=== PATIENT | female | born 1955 | race Caucasian/White ===

== ENCOUNTER 2020-04-05 22:51 | Observation (INO) ==
[2020-04-06] MEDS ORDERED: Isovue-370 500 ML BOTTLE IVP ONE (01:57)
[2020-04-06 02:29] LABS: Hematocrit 33.5 % (35.3-44.9); Hemoglobin 10.8 g/dL (11.5-15.4); Mean Corpuscular HGB Conc 32.2 g/dL (31.6-35.5); Mean Corpuscular Hemoglobin 31.9 pg (28.0-33.3); Mean Corpuscular Volume 98.8 fL (83.0-100.0); Mean Platelet Volume 11.8 fL (9.4-12.4); Platelet Count 210 K/mcL (140-400); Red Blood Count 3.39 M/mcL (3.82-4.97); Red Cell Distribution Width 13.3 % (11.5-14.5); White Blood Count 11.9 K/mcL (4.3-11.1)
[2020-04-06 02:31] LABS: INR 0.9; Prothrombin Time 10.2 Seconds (9.4-12.1)
[2020-04-06 02:34] LABS: Activated Partial Thrombo Time 32.7 Seconds (26.0-36.0)
[2020-04-06 02:47] LABS: Calcium 9.4 mg/dL (8.6-10.3); Potassium 4.2 mEq/L (3.5-5.1)
[2020-04-06 02:48] LABS: Troponin I 0.03 ng/mL (< 0.04)
[2020-04-06] MEDS ORDERED: 0.9 % Sodium Chloride 1,000 ML IVC ONE (03:15)
[2020-04-06] MEDS ORDERED: Aspirin 81 MG TAB.CHEW PO ONE (03:51)
[2020-04-06 04:10] LABS: Albumin 3.8 g/dL (3.5-5.7); Albumin/Globulin Ratio 1.9 (1.1-2.2); Bilirubin,Indirect 0.2 mg/dL (0.0-1.0); Bilirubin,Total 0.2 mg/dL (0.3-1.0); Total Protein 5.8 g/dL (6.4-8.9)
[2020-04-06] MEDS ORDERED: Ondansetron 4 MG/2 ML VIAL IVP PRN (08:01)
[2020-04-06] MEDS ORDERED: MOM Conc 10 ML UD.LIQ PO PRN (08:01)
[2020-04-06] MEDS ORDERED: Mag Hydrox/Al Hydrox/Simeth 30 ML UDC PO PRN (08:01)
[2020-04-06] MEDS ORDERED: Naloxone 0.4 MG/ML INJ IVP PRN (08:01)
[2020-04-06] MEDS ORDERED: Ipratropium/Albuterol Neb 3 ML IH PRN (08:03)
[2020-04-06] MEDS ORDERED: *HR* Dextrose 50 % in Water (Vial) 50 ML VIAL IVP PRN (08:04)
[2020-04-06] MEDS ORDERED: Dextrose Gel 15 GM/37.5 ML TUBE PO PRN ×2 (08:04)
[2020-04-06] MEDS ORDERED: D5% in Water 1,000 ML IVC PRN (08:04)
[2020-04-06] MEDS ORDERED: Perflutren Lipid Microsphere 1.3 ML in 0.9 % Sodium Chloride 8.7 ML IVP PRN (08:06)
[2020-04-06] MEDS ORDERED: BuPROPion SR (12 HR) 150 MG TABLET PO SCH (09:00)
[2020-04-06] MEDS: Metoprolol XL (24 HR) Succ 50 MG TAB.ER.24H PO SCH (09:23)
[2020-04-06] MEDS: amLODIPine 5 MG TABLET PO SCH (09:23)
[2020-04-06] MEDS: Acetaminophen 325 MG TABLET PO PRN ×3 (09:23→22:03)
[2020-04-06] MEDS: 0.9 % Sodium Chloride 1,000 ML IVC SCH (09:23)
[2020-04-06] MEDS: Insulin LISPRO 300 UNITS/3 ML VIAL SQ SCH ×2 (13:35→17:01)
[2020-04-06] MEDS: *HR* Heparin 5,000 UNIT/ML VIAL SQ SCH ×2 (15:53→22:03)
[2020-04-06] MEDS: Nicotine 21 MG PATCH.TD24 TD SCH (15:53)
[2020-04-06] MEDS ORDERED: Insulin LISPRO 300 UNITS/3 ML VIAL SQ SCH (21:00)
[2020-04-06 23:07] LABS: Bilirubin,Urine Negative (Negative); Blood,Urine Negative (Negative); Clarity,Urine Clear (Clear); Color,Urine Light-Yellow (Yellow); Glucose,Urine (UA) Normal (Normal); Ketones,Urine Negative (Negative); Leukocyte Esterase,Urine Negative (Negative); Nitrite,Urine Negative (Negative); PH,Urine 6.5 pH Units (5.0-8.0); Protein,Urine Negative (Neg-Trace); Specific Gravity,Urine 1.013 (1.010-1.025); Urobilinogen,Urine Normal (Normal)
[2020-04-07] MEDS: 0.9 % Sodium Chloride 1,000 ML IVC SCH (03:00)
[2020-04-07] MEDS: *HR* Heparin 5,000 UNIT/ML VIAL SQ SCH ×2 (05:19→15:11)
[2020-04-07] MEDS: Acetaminophen 325 MG TABLET PO PRN (05:22)
[2020-04-07 06:15] LABS: Hematocrit 32.7 % (35.3-44.9); Hemoglobin 10.5 g/dL (11.5-15.4); Mean Corpuscular HGB Conc 32.1 g/dL (31.6-35.5); Mean Corpuscular Volume 99.7 fL (83.0-100.0); Mean Platelet Volume 11.6 fL (9.4-12.4); Platelet Count 186 K/mcL (140-400); Red Blood Count 3.28 M/mcL (3.82-4.97); Red Cell Distribution Width 13.2 % (11.5-14.5)
[2020-04-07 06:36] LABS: Calcium 8.6 mg/dL (8.6-10.3); Chol/HDL Ratio 2.5 (0-4.9); Magnesium 1.7 mg/dL (1.6-2.6); Potassium 4.4 mEq/L (3.5-5.1)
[2020-04-07] MEDS: Nicotine 21 MG PATCH.TD24 TD SCH (08:01)
[2020-04-07] MEDS: amLODIPine 5 MG TABLET PO SCH (08:01)
[2020-04-07] MEDS: Metoprolol XL (24 HR) Succ 50 MG TAB.ER.24H PO SCH (08:01)
[2020-04-07] MEDS: Insulin LISPRO 300 UNITS/3 ML VIAL SQ SCH ×2 (08:02→14:16)
[2020-04-07] MEDS ORDERED: Aspirin Enteric Coated 81 MG Tablet PO SCH (09:00)
[2020-04-07] MEDS ORDERED: BuPROPion XL (24 HR) 150 MG TABLET PO SCH (09:00)
[2020-04-07 15:51] VITALS: BP 151/70
== END 2020-04-07 17:12 | disposition home or self-care (01) ==
LOC: 3ANU 22:51 → EMEROOARM 22:51 → SUATTDRO 04-06 04:05 → 3ANU 04-06 04:28
PROVIDERS: ADMIT Internal Medicine; ATTEND Internal Medicine

== ENCOUNTER 2020-12-08 00:06 | Inpatient (IN) ==
[2020-12-08] MEDS ORDERED: Naloxone 0.4 MG/ML INJ IVP PRN (01:54)
[2020-12-08] MEDS ORDERED: D5% in Water 1,000 ML IVC PRN (02:02)
[2020-12-08] MEDS ORDERED: *HR* Dextrose 50 % in Water (Vial) 50 ML VIAL IVP PRN (02:02)
[2020-12-08] MEDS ORDERED: Dextrose Gel 15 GM/37.5 ML TUBE PO PRN ×2 (02:02)
[2020-12-08] MEDS ORDERED: Perflutren Lipid Microsphere 1.3 ML in 0.9 % Sodium Chloride 8.7 ML IVP PRN (02:44)
[2020-12-08] MEDS ORDERED: Nicotine 2 MG GUM BC PRN (02:44)
[2020-12-08] MEDS ORDERED: Benzonatate 100 MG CAPSULE PO PRN (02:45)
[2020-12-08] MEDS ORDERED: Furosemide 20 MG/2 ML VIAL IVP ONE (03:18)
[2020-12-08 03:26] LABS: VBG HCO3 26 mEq/L (21-27); VBG PCO2 46 mmHg (41-51); VBG PH 7.36 pH Units (7.32-7.42); VBG PO2 32 mmHg (25-50)
[2020-12-08 03:28] LABS: Basophils % 0.4 %; Eosinophils # 0.1 K/mcL (0.0-0.6); Eosinophils % 1.1 %; Hematocrit 40.4 % (35.3-44.9); Hemoglobin 12.9 g/dL (11.5-15.4); Immature Granulocytes % 0.3 % (0-4); Lymphocytes # 1.7 K/mcL (0.6-4.6); Lymphocytes % 23.5 %; Mean Corpuscular HGB Conc 31.9 g/dL (31.6-35.5); Mean Corpuscular Hemoglobin 29.5 pg (28.0-33.3); Mean Corpuscular Volume 92.4 fL (83.0-100.0); Monocytes # 0.6 K/mcL (0.0-1.3); Monocytes % 8.7 %; Neutrophils # 4.8 K/mcL (1.6-8.9); Platelet Count 216 K/mcL (140-400); Red Blood Count 4.37 M/mcL (3.82-4.97); Red Cell Distribution Width 13.9 % (11.5-14.5); White Blood Count 7.3 K/mcL (4.3-11.1)
[2020-12-08 03:37] LABS: INR 1.1; Prothrombin Time 12.8 Seconds (9.4-12.1)
[2020-12-08 03:38] LABS: Activated Partial Thrombo Time 28.6 Seconds (26.0-36.0)
[2020-12-08 03:49] LABS: Alanine Aminotransferase 13 Units/L (7-52); Albumin 3.5 g/dL (3.5-5.7); Albumin/Globulin Ratio 1.1 (1.1-2.2); Alkaline Phosphatase 109 Units/L (34-104); Aspartate Amino Transferase 13 Units/L (13-39); BUN/Creatinine Ratio 16 (6-26); Bilirubin,Total 0.5 mg/dL (0.3-1.0); Blood Urea Nitrogen 17 mg/dL (8-23); C-Reactive Protein 103 mg/L (Less than 10); Calcium 9.3 mg/dL (8.6-10.3); Carbon Dioxide 26 mEq/L (23-29); Chloride 103 mEq/L (98-107); Globulin 3.1 g/dL (2.4-3.5); Glucose 174 mg/dL (70-105); Magnesium 1.6 mg/dL (1.6-2.6); Osmolality,Calculated 288 (280-300); Phosphorous 2.8 mg/dL (2.7-4.5); Potassium 3.5 mEq/L (3.5-5.1); Sodium 136 mEq/L (136-145); Total Protein 6.6 g/dL (6.4-8.9); Transferrin 175 mg/dL (203-362); Troponin I 0.04 ng/mL (< 0.04); eGFR For African Americans > 60 (> 60); eGFR For Non-African Americans 51 (> 60)
[2020-12-08] MEDS: Ipratropium 1 PUFF INHALER IH SCH ×5 (04:01→20:06)
[2020-12-08 04:04] LABS: Ferritin 96 ng/mL (10-120)
[2020-12-08 04:25] LABS: Thyroid Stimulating Hormone 0.983 mcIU/mL (0.340-5.600)
[2020-12-08 04:32] LABS: Estimated Average Glucose 100 mg/dl; Hemoglobin A1C 5.1 %
[2020-12-08] MEDS: *HR* Heparin 5,000 UNIT/ML VIAL SQ SCH ×3 (05:20→20:48)
[2020-12-08] MEDS: Insulin LISPRO 300 UNITS/3 ML VIAL SUBQ SCH ×4 (08:15→20:46)
[2020-12-08] MEDS: Dexamethasone 4 MG/ML VIAL IVP SCH (08:47)
[2020-12-08] MEDS: Nicotine 21 MG PATCH.TD24 TD SCH (08:48)
[2020-12-08] MEDS: Acetaminophen 325 MG TABLET PO PRN ×2 (14:49→20:49)
[2020-12-08] MEDS ORDERED: Metoprolol XL (24 HR) Succ 50 MG TAB.ER.24H PO SCH (18:00)
[2020-12-08] MEDS: Melatonin 3 MG TABLET PO PRN (20:48)
[2020-12-09] MEDS: Ipratropium 1 PUFF INHALER IH SCH ×6 (00:01→19:38)
[2020-12-09] MEDS: Acetaminophen 325 MG TABLET PO PRN ×2 (03:50→19:33)
[2020-12-09] MEDS: *HR* Metoprolol 5 MG/5 ML VIAL IVP PRN (03:51)
[2020-12-09] MEDS: *HR* Heparin 5,000 UNIT/ML VIAL SQ SCH ×3 (03:57→19:33)
[2020-12-09] MEDS: Aspirin Enteric Coated 81 MG Tablet PO SCH (08:20)
[2020-12-09] MEDS: (Vilazodone Hcl [Viibryd] 40 MG Tablet) PO SCH (08:21)
[2020-12-09] MEDS: Dexamethasone 4 MG/ML VIAL IVP SCH (08:21)
[2020-12-09] MEDS: Nicotine 21 MG PATCH.TD24 TD SCH (08:21)
[2020-12-09] MEDS: Insulin LISPRO 300 UNITS/3 ML VIAL SUBQ SCH ×4 (08:22→19:41)
[2020-12-09] MEDS ORDERED: amLODIPine 5 MG TABLET PO SCH ×2 (09:00)
[2020-12-09 10:14] LABS: Basophils % 0.1 %; Eosinophils % 0.1 %; Hematocrit 35.4 % (35.3-44.9); Hemoglobin 11.5 g/dL (11.5-15.4); Immature Granulocytes % 0.4 % (0-4); Lymphocytes # 0.9 K/mcL (0.6-4.6); Lymphocytes % 12.4 %; Mean Corpuscular HGB Conc 32.5 g/dL (31.6-35.5); Mean Corpuscular Hemoglobin 29.6 pg (28.0-33.3); Mean Platelet Volume 11.9 fL (9.4-12.4); Monocytes # 0.3 K/mcL (0.0-1.3); Monocytes % 4.1 %; Neutrophils # 5.7 K/mcL (1.6-8.9); Platelet Count 227 K/mcL (140-400); Red Blood Count 3.89 M/mcL (3.82-4.97); Red Cell Distribution Width 13.5 % (11.5-14.5); Segmented Neutrophils % 82.9 %; White Blood Count 6.9 K/mcL (4.3-11.1)
[2020-12-09 10:48] LABS: Burr Cells 1+ (Not Present); Large Platelets Present (Not Present); Reactive Lymphocytes Present (Not Present)
[2020-12-09] MEDS: lisinopriL 20 MG TABLET PO SCH (12:11)
[2020-12-09 12:51] LABS: Calcium 9.4 mg/dL (8.6-10.3); Potassium 3.6 mEq/L (3.5-5.1)
[2020-12-09] MEDS ORDERED: Furosemide 20 MG/2 ML VIAL IVP ONE (13:18)
[2020-12-09] MEDS ORDERED: Metoprolol XL (24 HR) Succ 50 MG TAB.ER.24H PO SCH (18:00)
[2020-12-10] MEDS: Ipratropium 1 PUFF INHALER IH SCH ×6 (00:26→19:56)
[2020-12-10] MEDS: Ondansetron 4 MG/2 ML VIAL IVP PRN ×2 (02:15→23:36)
[2020-12-10] MEDS: *HR* Heparin 5,000 UNIT/ML VIAL SQ SCH ×3 (04:26→20:51)
[2020-12-10] MEDS: *HR* Metoprolol 5 MG/5 ML VIAL IVP PRN (05:07)
[2020-12-10] MEDS: Acetaminophen 325 MG TABLET PO PRN ×3 (05:07→23:31)
[2020-12-10 05:39] LABS: Basophils % 0.2 %; Hematocrit 37.5 % (35.3-44.9); Hemoglobin 12.2 g/dL (11.5-15.4); Immature Granulocytes % 0.3 % (0-4); Lymphocytes # 1.5 K/mcL (0.6-4.6); Lymphocytes % 13.7 %; Mean Corpuscular HGB Conc 32.5 g/dL (31.6-35.5); Mean Corpuscular Hemoglobin 29.5 pg (28.0-33.3); Mean Corpuscular Volume 90.8 fL (83.0-100.0); Mean Platelet Volume 11.9 fL (9.4-12.4); Monocytes # 0.8 K/mcL (0.0-1.3); Monocytes % 7.5 %; Neutrophils # 8.7 K/mcL (1.6-8.9); Platelet Count 266 K/mcL (140-400); Red Blood Count 4.13 M/mcL (3.82-4.97); Red Cell Distribution Width 13.3 % (11.5-14.5); Segmented Neutrophils % 78.3 %
[2020-12-10 05:43] LABS: White Blood Count 11.1 K/mcL (4.3-11.1)
[2020-12-10 05:59] LABS: Albumin 3.4 g/dL (3.5-5.7); Albumin/Globulin Ratio 1.2 (1.1-2.2); Bilirubin,Total 0.4 mg/dL (0.3-1.0); Calcium 9.4 mg/dL (8.6-10.3); Globulin 2.9 g/dL (2.4-3.5); Potassium 3.4 mEq/L (3.5-5.1); Total Protein 6.3 g/dL (6.4-8.9)
[2020-12-10] MEDS: Spironolactone 25 MG TABLET PO SCH (08:47)
[2020-12-10] MEDS: Nicotine 21 MG PATCH.TD24 TD SCH (08:47)
[2020-12-10] MEDS: Aspirin Enteric Coated 81 MG Tablet PO SCH (08:48)
[2020-12-10] MEDS: Dexamethasone 4 MG/ML VIAL IVP SCH (08:48)
[2020-12-10] MEDS: (Vilazodone Hcl [Viibryd] 40 MG Tablet) PO SCH (08:48)
[2020-12-10] MEDS: lisinopriL 20 MG TABLET PO SCH (08:48)
[2020-12-10] MEDS: Insulin LISPRO 300 UNITS/3 ML VIAL SUBQ SCH ×4 (08:49→20:43)
[2020-12-10] MEDS ORDERED: hydrALAZINE 25 MG TABLET PO SCH (09:00)
[2020-12-10] MEDS: carvediloL 25 MG TABLET PO SCH (16:49)
[2020-12-11] MEDS: Ipratropium 1 PUFF INHALER IH SCH ×6 (00:11→19:53)
[2020-12-11] MEDS: *HR* Heparin 5,000 UNIT/ML VIAL SQ SCH ×3 (05:28→20:55)
[2020-12-11 06:32] LABS: Basophils % 0.1 %; Hematocrit 37.5 % (35.3-44.9); Immature Granulocytes % 0.4 % (0-4); Lymphocytes # 1.8 K/mcL (0.6-4.6); Lymphocytes % 11.8 %; Mean Corpuscular Hemoglobin 29.6 pg (28.0-33.3); Mean Corpuscular Volume 92.4 fL (83.0-100.0); Monocytes # 1.1 K/mcL (0.0-1.3); Monocytes % 7.4 %; Platelet Count 273 K/mcL (140-400); Red Blood Count 4.06 M/mcL (3.82-4.97); Red Cell Distribution Width 13.3 % (11.5-14.5); Segmented Neutrophils % 80.3 %; White Blood Count 14.9 K/mcL (4.3-11.1)
[2020-12-11 06:53] LABS: Calcium 9.6 mg/dL (8.6-10.3); Potassium 4.4 mEq/L (3.5-5.1)
[2020-12-11] MEDS: Insulin LISPRO 300 UNITS/3 ML VIAL SUBQ SCH ×4 (08:47→20:56)
[2020-12-11] MEDS ORDERED: lisinopriL 10 MG TABLET PO SCH (09:00)
[2020-12-11] MEDS: (Vilazodone Hcl [Viibryd] 40 MG Tablet) PO SCH (09:14)
[2020-12-11] MEDS: Spironolactone 25 MG TABLET PO SCH (09:14)
[2020-12-11] MEDS: Nicotine 21 MG PATCH.TD24 TD SCH (09:14)
[2020-12-11] MEDS: Aspirin Enteric Coated 81 MG Tablet PO SCH (09:14)
[2020-12-11] MEDS: carvediloL 25 MG TABLET PO SCH ×2 (09:14→16:50)
[2020-12-11] MEDS: Dexamethasone 4 MG/ML VIAL IVP SCH (09:15)
[2020-12-11] MEDS ORDERED: Nitroglycerin 0.4 MG TAB.SUBL SL PRN (09:53)
[2020-12-11] MEDS ORDERED: Perflutren Lipid Microsphere 1.3 ML in 0.9 % Sodium Chloride 8.7 ML IVP PRN (09:54)
[2020-12-11] MEDS: Melatonin 3 MG TABLET PO PRN (20:55)
[2020-12-12] MEDS: Ipratropium 1 PUFF INHALER IH SCH ×4 (00:01→11:47)
[2020-12-12] MEDS: *HR* Heparin 5,000 UNIT/ML VIAL SQ SCH (05:54)
[2020-12-12 06:11] LABS: Basophils % 0.1 %; Hemoglobin 12.1 g/dL (11.5-15.4); Immature Granulocytes % 0.4 % (0-4); Lymphocytes # 1.8 K/mcL (0.6-4.6); Lymphocytes % 11.2 %; Mean Corpuscular HGB Conc 32.7 g/dL (31.6-35.5); Mean Corpuscular Hemoglobin 29.7 pg (28.0-33.3); Mean Corpuscular Volume 90.7 fL (83.0-100.0); Mean Platelet Volume 12.3 fL (9.4-12.4); Monocytes # 1.1 K/mcL (0.0-1.3); Monocytes % 6.9 %; Neutrophils # 12.8 K/mcL (1.6-8.9); Platelet Count 276 K/mcL (140-400); Red Blood Count 4.08 M/mcL (3.82-4.97); Segmented Neutrophils % 81.4 %; White Blood Count 15.7 K/mcL (4.3-11.1)
[2020-12-12 06:45] LABS: BUN/Creatinine Ratio 28 (6-26); Blood Urea Nitrogen 31 mg/dL (8-23); Calcium 9.7 mg/dL (8.6-10.3); Carbon Dioxide 26 mEq/L (23-29); Chloride 101 mEq/L (98-107); Glucose 208 mg/dL (70-105); Osmolality,Calculated 291 (280-300); Potassium 4.2 mEq/L (3.5-5.1); Sodium 134 mEq/L (136-145); eGFR For African Americans > 60 (> 60); eGFR For Non-African Americans 50 (> 60)
[2020-12-12] MEDS ORDERED: hydrALAZINE 25 MG TABLET PO SCH (08:00)
[2020-12-12 08:26] LABS: C-Reactive Protein 28 mg/L (Less than 10)
[2020-12-12] MEDS: Dexamethasone 4 MG/ML VIAL IVP SCH (08:51)
[2020-12-12] MEDS: Aspirin Enteric Coated 81 MG Tablet PO SCH (08:52)
[2020-12-12] MEDS: Nicotine 21 MG PATCH.TD24 TD SCH (08:52)
[2020-12-12] MEDS: carvediloL 25 MG TABLET PO SCH (08:52)
[2020-12-12] MEDS: Spironolactone 25 MG TABLET PO SCH (08:52)
[2020-12-12] MEDS ORDERED: lisinopriL 20 MG TABLET PO SCH (09:00)
[2020-12-12] MEDS: Insulin LISPRO 300 UNITS/3 ML VIAL SUBQ SCH (09:01)
[2020-12-12] MEDS: (Vilazodone Hcl [Viibryd] 40 MG Tablet) PO SCH (09:02)
[2020-12-12 10:55] VITALS: BP 137/69
== END 2020-12-12 15:35 | disposition home or self-care (01) | DRG 177 ==
LOC: 3BNU → SUATTDRO 01:44
PROVIDERS: ADMIT Internal Medicine; ATTEND Internal Medicine

== ENCOUNTER 2021-09-06 14:40 | Inpatient (IN) ==
[2021-09-06] MEDS ORDERED: Ondansetron 4 MG/2 ML VIAL IVP PRN (17:30)
[2021-09-06] MEDS ORDERED: Naloxone 0.4 MG/ML INJ IVP PRN (17:30)
[2021-09-06] MEDS ORDERED: Nitroglycerin 0.4 MG TAB.SUBL SL PRN (17:40)
[2021-09-06] MEDS ORDERED: *HR* OxyCODONE Immed Rel 5 MG TABLET PO PRN (18:11)
[2021-09-06] MEDS ORDERED: Acetaminophen 325 MG TABLET PO PRN (18:11)
[2021-09-06] MEDS: Furosemide 20 MG/2 ML VIAL IVP SCH ×2 (19:34→21:41)
[2021-09-06] MEDS ORDERED: Furosemide 40 MG/4 ML VIAL IVP SCH (21:00)
[2021-09-06] MEDS: *HR* HYDROcodone/Acet 5/325 mg TABLET PO PRN (21:40)
[2021-09-07 02:27] LABS: Basophils # 0.1 K/mcL (0.0-0.2); Basophils % 0.6 %; Eosinophils # 0.1 K/mcL (0.0-0.6); Eosinophils % 1.6 %; Hematocrit 38.6 % (35.3-44.9); Hemoglobin 12.6 g/dL (11.5-15.4); Immature Granulocytes % 0.2 % (0-4); Lymphocytes % 33.4 %; Mean Corpuscular HGB Conc 32.6 g/dL (31.6-35.5); Mean Corpuscular Hemoglobin 32.7 pg (28.0-33.3); Mean Corpuscular Volume 100.3 fL (83.0-100.0); Mean Platelet Volume 12.7 fL (9.4-12.4); Monocytes # 0.7 K/mcL (0.0-1.3); Monocytes % 7.6 %; Neutrophils # 5.1 K/mcL (1.6-8.9); Platelet Count 200 K/mcL (140-400); Red Blood Count 3.85 M/mcL (3.82-4.97); Red Cell Distribution Width 13.8 % (11.5-14.5); Segmented Neutrophils % 56.6 %; White Blood Count 8.9 K/mcL (4.3-11.1)
[2021-09-07 02:41] LABS: Calcium 9.5 mg/dL (8.6-10.3); Magnesium 1.7 mg/dL (1.6-2.6); Phosphorous 2.8 mg/dL (2.7-4.5); Potassium 3.4 mEq/L (3.5-5.1)
[2021-09-07] MEDS: *HR* Heparin 5,000 UNIT/ML VIAL SQ SCH ×3 (05:00→20:37)
[2021-09-07] MEDS ORDERED: Perflutren Lipid Microsphere 1.3 ML in 0.9 % Sodium Chloride 8.7 ML IVP PRN (08:55)
[2021-09-07] MEDS: Furosemide 20 MG/2 ML VIAL IVP SCH (09:13)
[2021-09-07] MEDS: *HR* HYDROcodone/Acet 5/325 mg TABLET PO PRN ×2 (09:17→20:37)
[2021-09-08 01:09] LABS: Basophils % 0.4 %; Eosinophils # 0.1 K/mcL (0.0-0.6); Eosinophils % 1.5 %; Hematocrit 40.8 % (35.3-44.9); Immature Granulocytes % 0.1 % (0-4); Lymphocytes % 31.7 %; Mean Corpuscular HGB Conc 31.9 g/dL (31.6-35.5); Mean Corpuscular Hemoglobin 31.7 pg (28.0-33.3); Mean Corpuscular Volume 99.5 fL (83.0-100.0); Mean Platelet Volume 12.2 fL (9.4-12.4); Monocytes # 0.6 K/mcL (0.0-1.3); Monocytes % 5.8 %; Neutrophils # 5.8 K/mcL (1.6-8.9); Platelet Count 199 K/mcL (140-400); Red Cell Distribution Width 13.5 % (11.5-14.5); Segmented Neutrophils % 60.5 %; White Blood Count 9.5 K/mcL (4.3-11.1)
[2021-09-08 01:27] LABS: Calcium 9.5 mg/dL (8.6-10.3); Potassium 3.7 mEq/L (3.5-5.1)
[2021-09-08] MEDS: *HR* Heparin 5,000 UNIT/ML VIAL SQ SCH ×3 (05:31→21:17)
[2021-09-08] MEDS: Furosemide 20 MG/2 ML VIAL IVP SCH (09:34)
[2021-09-09 01:39] LABS: Basophils % 0.5 %; Eosinophils # 0.1 K/mcL (0.0-0.6); Hematocrit 39.1 % (35.3-44.9); Hemoglobin 12.7 g/dL (11.5-15.4); Immature Granulocytes % 0.3 % (0-4); Lymphocytes # 2.6 K/mcL (0.6-4.6); Lymphocytes % 32.6 %; Mean Corpuscular HGB Conc 32.5 g/dL (31.6-35.5); Mean Corpuscular Volume 98.5 fL (83.0-100.0); Mean Platelet Volume 12.3 fL (9.4-12.4); Monocytes # 0.6 K/mcL (0.0-1.3); Neutrophils # 4.6 K/mcL (1.6-8.9); Platelet Count 207 K/mcL (140-400); Red Blood Count 3.97 M/mcL (3.82-4.97); Red Cell Distribution Width 13.4 % (11.5-14.5); Segmented Neutrophils % 57.6 %; White Blood Count 7.9 K/mcL (4.3-11.1)
[2021-09-09 01:53] LABS: Calcium 9.8 mg/dL (8.6-10.3); Potassium 3.2 mEq/L (3.5-5.1)
[2021-09-09] MEDS: *HR* Heparin 5,000 UNIT/ML VIAL SQ SCH ×3 (05:08→21:15)
[2021-09-09] MEDS: Furosemide 20 MG/2 ML VIAL IVP SCH (08:52)
[2021-09-09] MEDS ORDERED: Perflutren Lipid Microsphere 1.3 ML in 0.9 % Sodium Chloride 8.7 ML IVP PRN (20:53)
[2021-09-10] MEDS: *HR* Heparin 5,000 UNIT/ML VIAL SQ SCH ×3 (05:53→21:08)
[2021-09-10] MEDS: Furosemide 20 MG/2 ML VIAL IVP SCH (08:44)
[2021-09-10 14:48] LABS: Basophils % 0.4 %; Eosinophils # 0.1 K/mcL (0.0-0.6); Eosinophils % 0.9 %; Hematocrit 40.3 % (35.3-44.9); Immature Granulocytes % 0.4 % (0-4); Lymphocytes # 2.1 K/mcL (0.6-4.6); Lymphocytes % 25.8 %; Mean Corpuscular HGB Conc 32.3 g/dL (31.6-35.5); Mean Corpuscular Hemoglobin 32.1 pg (28.0-33.3); Mean Corpuscular Volume 99.5 fL (83.0-100.0); Mean Platelet Volume 12.4 fL (9.4-12.4); Monocytes # 0.6 K/mcL (0.0-1.3); Monocytes % 7.7 %; Neutrophils # 5.3 K/mcL (1.6-8.9); Platelet Count 212 K/mcL (140-400); Red Blood Count 4.05 M/mcL (3.82-4.97); Red Cell Distribution Width 13.9 % (11.5-14.5); Segmented Neutrophils % 64.8 %; White Blood Count 8.1 K/mcL (4.3-11.1)
[2021-09-10 15:08] LABS: Calcium 9.8 mg/dL (8.6-10.3); Potassium 3.3 mEq/L (3.5-5.1)
[2021-09-10] MEDS: Pregabalin 75 MG CAPSULE PO SCH ×2 (15:28→21:07)
[2021-09-10] MEDS: lisinopriL 20 MG TABLET PO SCH (21:07)
[2021-09-11 02:13] LABS: Basophils % 0.5 %; Eosinophils # 0.1 K/mcL (0.0-0.6); Eosinophils % 1.2 %; Hematocrit 39.8 % (35.3-44.9); Hemoglobin 12.6 g/dL (11.5-15.4); Immature Granulocytes % 0.2 % (0-4); Lymphocytes # 2.9 K/mcL (0.6-4.6); Lymphocytes % 35.4 %; Mean Corpuscular HGB Conc 31.7 g/dL (31.6-35.5); Mean Corpuscular Hemoglobin 31.6 pg (28.0-33.3); Mean Corpuscular Volume 99.7 fL (83.0-100.0); Mean Platelet Volume 12.5 fL (9.4-12.4); Monocytes # 0.7 K/mcL (0.0-1.3); Monocytes % 9.2 %; Neutrophils # 4.3 K/mcL (1.6-8.9); Platelet Count 190 K/mcL (140-400); Red Blood Count 3.99 M/mcL (3.82-4.97); Red Cell Distribution Width 13.6 % (11.5-14.5); Segmented Neutrophils % 53.5 %; White Blood Count 8.1 K/mcL (4.3-11.1)
[2021-09-11 02:28] LABS: Calcium 9.9 mg/dL (8.6-10.3); Potassium 3.4 mEq/L (3.5-5.1)
[2021-09-11] MEDS: *HR* Heparin 5,000 UNIT/ML VIAL SQ SCH ×3 (06:05→21:35)
[2021-09-11] MEDS: Pregabalin 75 MG CAPSULE PO SCH ×3 (09:47→21:35)
[2021-09-11] MEDS: lisinopriL 20 MG TABLET PO SCH ×2 (09:47→21:35)
[2021-09-11] MEDS: Spironolactone 25 MG TABLET PO SCH (09:47)
[2021-09-11] MEDS: Metoprolol XL (24 HR) Succ 50 MG TAB.ER.24H PO SCH (09:47)
[2021-09-11] MEDS: Aspirin Enteric Coated 81 MG Tablet PO SCH (09:47)
[2021-09-11] MEDS: Furosemide 20 MG/2 ML VIAL IVP SCH (09:48)
[2021-09-11] MEDS ORDERED: Bumetanide 1 MG TABLET PO SCH (10:50)
[2021-09-11] MEDS: *HR* HYDROcodone/Acet 5/325 mg TABLET PO PRN (21:35)
[2021-09-12 02:47] LABS: Basophils # 0.1 K/mcL (0.0-0.2); Basophils % 0.6 %; Eosinophils # 0.1 K/mcL (0.0-0.6); Eosinophils % 1.2 %; Hemoglobin 12.8 g/dL (11.5-15.4); Immature Granulocytes % 0.2 % (0-4); Lymphocytes # 3.3 K/mcL (0.6-4.6); Lymphocytes % 36.6 %; Mean Corpuscular HGB Conc 31.2 g/dL (31.6-35.5); Mean Corpuscular Hemoglobin 31.8 pg (28.0-33.3); Mean Corpuscular Volume 101.7 fL (83.0-100.0); Monocytes # 0.7 K/mcL (0.0-1.3); Monocytes % 8.1 %; Neutrophils # 4.8 K/mcL (1.6-8.9); Platelet Count 195 K/mcL (140-400); Red Blood Count 4.03 M/mcL (3.82-4.97); Red Cell Distribution Width 13.7 % (11.5-14.5); Segmented Neutrophils % 53.3 %
[2021-09-12 03:05] LABS: Potassium 3.8 mEq/L (3.5-5.1)
[2021-09-12 03:38] VITALS: O2SAT 97
[2021-09-12] MEDS: *HR* Heparin 5,000 UNIT/ML VIAL SQ SCH (05:51)
[2021-09-12 06:49] VITALS: BP 135/66; PULSE 50; TEMP 97.8
[2021-09-12] MEDS: Aspirin Enteric Coated 81 MG Tablet PO SCH (08:03)
[2021-09-12] MEDS: Metoprolol XL (24 HR) Succ 50 MG TAB.ER.24H PO SCH (08:03)
[2021-09-12] MEDS: lisinopriL 20 MG TABLET PO SCH (08:03)
[2021-09-12] MEDS: Spironolactone 25 MG TABLET PO SCH (08:04)
[2021-09-12] MEDS: Pregabalin 75 MG CAPSULE PO SCH (08:04)
[2021-09-12] MEDS ORDERED: Bumetanide 1 MG TABLET PO SCH (09:00)
== END 2021-09-12 10:07 | disposition home or self-care (01) | DRG 291 ==
LOC: 3BNU → SUATTDRO 17:00
PROVIDERS: ADMIT Family Medicine; ATTEND Student in an Organized Health Care Education/Training Program

== ENCOUNTER 2021-12-08 13:55 | Inpatient (IN) ==
[2021-12-08] MEDS ORDERED: Isovue-370 500 ML BOTTLE IVP ONE (14:05)
[2021-12-08 14:16] LABS: Hematocrit 39.2 % (35.3-44.9); Hemoglobin 12.8 g/dL (11.5-15.4); Mean Corpuscular HGB Conc 32.7 g/dL (31.6-35.5); Mean Corpuscular Hemoglobin 31.8 pg (28.0-33.3); Mean Corpuscular Volume 97.5 fL (83.0-100.0); Mean Platelet Volume 11.5 fL (9.4-12.4); Platelet Count 236 K/mcL (140-400); Red Blood Count 4.02 M/mcL (3.82-4.97); Red Cell Distribution Width 13.5 % (11.5-14.5); White Blood Count 9.8 K/mcL (4.3-11.1)
[2021-12-08 14:21] LABS: Prothrombin Time 11.3 Seconds (9.4-12.1)
[2021-12-08 14:24] LABS: Activated Partial Thrombo Time 30.8 Seconds (26.0-36.0)
[2021-12-08 14:42] LABS: Troponin I 0.06 ng/mL (< 0.04)
[2021-12-08 15:19] LABS: Bilirubin,Urine Negative (Negative); Blood,Urine Negative (Negative); Clarity,Urine Clear (Clear); Color,Urine Light-Yellow (Yellow); Glucose,Urine (UA) Normal (Normal); Ketones,Urine Negative (Negative); Leukocyte Esterase,Urine Negative (Negative); Nitrite,Urine Negative (Negative); PH,Urine 6.5 pH Units (5.0-8.0); Protein,Urine Trace mg/dL (Neg-Trace); Specific Gravity,Urine > 1.030 (1.010-1.025); Urobilinogen,Urine Normal (Normal)
[2021-12-08 15:28] LABS: BUN/Creatinine Ratio 21 (6-26); Blood Urea Nitrogen 27 mg/dL (8-23); Calcium 9.4 mg/dL (8.6-10.3); Carbon Dioxide 26 mEq/L (23-29); Chloride 107 mEq/L (98-107); Creatine Kinase 53 Units/L (30-223); Ethanol < 10 mg/dL (Less than 10); Glucose 151 mg/dL (70-105); Osmolality,Calculated 298 (280-300); Potassium 4.1 mEq/L (3.5-5.1); Sodium 140 mEq/L (136-145); eGFR For African Americans 50 (> 60); eGFR For Non-African Americans 42 (> 60)
[2021-12-08 15:48] LABS: Influenza A PCR Negative (Negative); Influenza B PCR Negative (Negative); Resp. Syncytial Virus PCR Negative (Negative)
[2021-12-08 15:50] LABS: SARS-CoV-2 by PCR (In House) Negative (Negative)
[2021-12-08] MEDS ORDERED: Naloxone 0.4 MG/ML INJ IVP PRN (17:11)
[2021-12-08] MEDS ORDERED: Acetaminophen 325 MG TABLET PO PRN (17:11)
[2021-12-08] MEDS ORDERED: Ondansetron 4 MG/2 ML VIAL IVP PRN (17:11)
[2021-12-08] MEDS ORDERED: Melatonin 3 MG TABLET PO PRN (17:11)
[2021-12-08] MEDS ORDERED: Nicotine 2 MG GUM BC PRN (17:18)
[2021-12-08] MEDS ORDERED: *HR* LORazepam 2 MG/ML VIAL IVP ONE (18:18)
[2021-12-08] MEDS ORDERED: *HR* LORazepam 2 MG/ML VIAL IVP PRN (18:19)
[2021-12-08] MEDS: *HR* Heparin 5,000 UNIT/ML VIAL SQ SCH (18:23)
[2021-12-08] MEDS: Nicotine 14 MG PATCH.TD24 TD SCH (18:23)
[2021-12-08] MEDS: lisinopriL 20 MG TABLET PO SCH (20:13)
[2021-12-08] MEDS ORDERED: D5% in Water 1,000 ML IVC PRN (23:52)
[2021-12-08] MEDS ORDERED: Dextrose 4 GM Chewable Tablets PO PRN ×2 (23:52)
[2021-12-08] MEDS ORDERED: *HR* Dextrose 50 % in Water (Syg) 50 ML SYRINGE IVP PRN (23:52)
[2021-12-09] MEDS ORDERED: Acetaminophen IV 500 MG/50 ML BAG IVPB ONE (05:20)
[2021-12-09] MEDS: *HR* Heparin 5,000 UNIT/ML VIAL SQ SCH ×2 (05:34→17:09)
[2021-12-09] MEDS ORDERED: *HR* Enoxaparin 40 MG/0.4 ML SYRINGE SQ SCH (06:00)
[2021-12-09 06:38] LABS: INR 1.1; Prothrombin Time 11.9 Seconds (9.4-12.1)
[2021-12-09 06:45] LABS: Chol/HDL Ratio 2.5 (0-4.9)
[2021-12-09 06:50] LABS: Calcium 9.4 mg/dL (8.6-10.3); Phosphorous 2.7 mg/dL (2.7-4.5); Potassium 3.8 mEq/L (3.5-5.1); Troponin I 0.08 ng/mL (< 0.04)
[2021-12-09] MEDS ORDERED: Perflutren Lipid Microsphere 1.3 ML in 0.9 % Sodium Chloride 8.7 ML IVP PRN (07:54)
[2021-12-09] MEDS: lisinopriL 20 MG TABLET PO SCH ×2 (08:43→20:46)
[2021-12-09] MEDS: Bumetanide 1 MG TABLET PO SCH (08:43)
[2021-12-09] MEDS: Metoprolol XL (24 HR) Succ 50 MG TAB.ER.24H PO SCH (08:43)
[2021-12-09] MEDS: Nicotine 14 MG PATCH.TD24 TD SCH (08:57)
[2021-12-09] MEDS ORDERED: Aspirin Enteric Coated 81 MG Tablet PO SCH (09:00)
[2021-12-09 10:47] LABS: Estimated Average Glucose 91 mg/dl; Hemoglobin A1C 4.8 %
[2021-12-09] MEDS: Ketorolac 30 MG/ML VIAL IVP PRN ×2 (11:24→22:00)
[2021-12-09] MEDS: Aspirin 81 MG TAB.CHEW PO SCH (13:16)
[2021-12-09] MEDS ORDERED: *HR* LORazepam 2 MG/ML VIAL IVP ONE (22:14)
[2021-12-10] MEDS: Ketorolac 30 MG/ML VIAL IVP PRN ×2 (04:21→12:43)
[2021-12-10] MEDS ORDERED: *HR* LORazepam 2 MG/ML VIAL IVP ONE (05:13)
[2021-12-10] MEDS: *HR* Heparin 5,000 UNIT/ML VIAL SQ SCH ×2 (05:18→17:57)
[2021-12-10] MEDS: Aspirin 81 MG TAB.CHEW PO SCH (07:43)
[2021-12-10] MEDS: Bumetanide 1 MG TABLET PO SCH (07:43)
[2021-12-10] MEDS: Metoprolol XL (24 HR) Succ 50 MG TAB.ER.24H PO SCH (07:43)
[2021-12-10] MEDS: lisinopriL 20 MG TABLET PO SCH ×2 (07:43→20:07)
[2021-12-10] MEDS: Nicotine 14 MG PATCH.TD24 TD SCH (07:44)
[2021-12-10] MEDS: Pregabalin 75 MG CAPSULE PO SCH ×3 (07:54→20:07)
[2021-12-10] MEDS: hydrALAZINE 25 MG TABLET PO SCH ×3 (07:54→20:07)
[2021-12-10] MEDS ORDERED: hydrOXYzine pamoate 25 MG CAPSULE PO PRN (13:09)
[2021-12-11] MEDS: *HR* Heparin 5,000 UNIT/ML VIAL SQ SCH ×2 (05:26→17:00)
[2021-12-11] MEDS: Ketorolac 30 MG/ML VIAL IVP PRN ×2 (05:26→11:53)
[2021-12-11] MEDS: lisinopriL 20 MG TABLET PO SCH (08:06)
[2021-12-11] MEDS: Aspirin 81 MG TAB.CHEW PO SCH (08:06)
[2021-12-11] MEDS: Bumetanide 1 MG TABLET PO SCH (08:06)
[2021-12-11] MEDS: Pregabalin 75 MG CAPSULE PO SCH ×2 (08:06→15:13)
[2021-12-11] MEDS: Metoprolol XL (24 HR) Succ 50 MG TAB.ER.24H PO SCH (08:06)
[2021-12-11] MEDS: Nicotine 14 MG PATCH.TD24 TD SCH (08:08)
[2021-12-11] MEDS: hydrALAZINE 25 MG TABLET PO SCH ×2 (08:08→15:13)
[2021-12-11] MEDS ORDERED: E-Z-PAQUE (BARIUM SULF) SUSP 1 BOTTLE PO ONE (10:39)
[2021-12-11] MEDS ORDERED: E-Z-HD (BARIUM SULF) SUSPENSION PO ONE (10:39)
[2021-12-11 16:01] VITALS: O2SAT 95
[2021-12-11 18:41] VITALS: BP 130/30; PULSE 60; TEMP 98.6
[2021-12-11 18:43] LABS: Influenza A PCR Negative (Negative); Influenza B PCR Negative (Negative); Resp. Syncytial Virus PCR Negative (Negative)
[2021-12-11 18:44] LABS: SARS-CoV-2 by PCR (In House) Negative (Negative)
[2021-12-11] MEDS ORDERED: carvediloL 6.25 MG TABLET PO SCH (21:00)
[2021-12-12] MEDS ORDERED: carvediloL 6.25 MG TABLET PO SCH (08:00)
== END 2021-12-11 19:55 | disposition other institution (70) | DRG 65 ==
LOC: EMEROOARM 13:55 → 2NENU 13:55 → SUATTDRO 17:11 → 2NENU 17:50
PROVIDERS: ADMIT Internal Medicine; ATTEND Internal Medicine

== ENCOUNTER 2022-03-31 00:02 | Observation (INO) ==
[2022-03-31] MEDS ORDERED: Naloxone 0.4 MG/ML INJ IVP PRN (03:41)
[2022-03-31] MEDS ORDERED: Acetaminophen 325 MG TABLET PO PRN (04:32)
[2022-03-31] MEDS ORDERED: Dextrose Gel 15 GM/37.5 ML TUBE PO PRN ×2 (04:58)
[2022-03-31] MEDS ORDERED: D5% in Water 1,000 ML IVC PRN (04:58)
[2022-03-31] MEDS ORDERED: *HR* Dextrose 50 % in Water (Syg) 50 ML SYRINGE IVP PRN (04:58)
[2022-03-31] MEDS: *HR* HYDROcodone/Acet 5/325 mg TABLET PO PRN ×2 (05:50→16:13)
[2022-03-31] MEDS: Ondansetron ODT 4 MG TAB.RAPDIS SL PRN (05:51)
[2022-03-31] MEDS ORDERED: Perflutren Lipid Microsphere 1.3 ML in 0.9 % Sodium Chloride 8.7 ML IVP PRN (06:30)
[2022-03-31] MEDS: Insulin LISPRO 300 UNITS/3 ML VIAL SUBQ SCH ×4 (09:58→20:35)
[2022-03-31] MEDS ORDERED: *HR* Heparin 5,000 UNIT/ML VIAL IVP PRN ×2 (10:08)
[2022-03-31] MEDS ORDERED: *HR* Heparin 5,000 UNIT/ML VIAL IVP ONE (10:08)
[2022-03-31] MEDS: Heparin 25,000UNIT/250ML 1/2NS 25,000 UNIT/250 ML IV.SOLN IVC SCH (10:54)
[2022-03-31 11:03] LABS: Hematocrit 31.3 % (35.3-44.9); Hemoglobin 10.7 g/dL (11.5-15.4); Mean Corpuscular HGB Conc 34.2 g/dL (31.6-35.5); Mean Corpuscular Hemoglobin 31.6 pg (28.0-33.3); Mean Corpuscular Volume 92.3 fL (83.0-100.0); Mean Platelet Volume 11.9 fL (9.4-12.4); Platelet Count 234 K/mcL (140-400); Red Blood Count 3.39 M/mcL (3.82-4.97); Red Cell Distribution Width 14.4 % (11.5-14.5); White Blood Count 7.5 K/mcL (4.3-11.1)
[2022-03-31 11:16] LABS: Prothrombin Time 11.3 Seconds (9.4-12.1)
[2022-03-31 11:18] LABS: Heparin anti-factor XA UFH < 0.04 IU/mL (0.30-0.70)
[2022-03-31] MEDS ORDERED: ALPRAZolam 0.25 MG TABLET PO ONE (20:25)
[2022-04-01 02:06] LABS: Hematocrit 30.7 % (35.3-44.9); Hemoglobin 10.3 g/dL (11.5-15.4); Mean Corpuscular HGB Conc 33.6 g/dL (31.6-35.5); Mean Corpuscular Hemoglobin 31.2 pg (28.0-33.3); Mean Platelet Volume 12.4 fL (9.4-12.4); Platelet Count 220 K/mcL (140-400); Red Cell Distribution Width 14.5 % (11.5-14.5); White Blood Count 6.2 K/mcL (4.3-11.1)
[2022-04-01 02:31] LABS: Albumin 3.1 g/dL (3.5-5.7); Albumin/Globulin Ratio 1.5 (1.1-2.2); Bilirubin,Total 0.6 mg/dL (0.3-1.0); Calcium 9.1 mg/dL (8.6-10.3); Globulin 2.1 g/dL (2.4-3.5); Potassium 3.2 mEq/L (3.5-5.1); Total Protein 5.2 g/dL (6.4-8.9)
[2022-04-01] MEDS: Insulin LISPRO 300 UNITS/3 ML VIAL SUBQ SCH ×4 (07:57→20:47)
[2022-04-01] MEDS: *HR* HYDROcodone/Acet 5/325 mg TABLET PO PRN ×2 (07:59→16:57)
[2022-04-01] MEDS ORDERED: Budesonide/Formoterol 160/4.5 1 PUFF INH IH PRN (10:01)
[2022-04-01] MEDS: Heparin 25,000UNIT/250ML 1/2NS 25,000 UNIT/250 ML IV.SOLN IVC SCH (14:53)
[2022-04-01] MEDS ORDERED: ALPRAZolam 0.25 MG TABLET PO ONE (20:24)
[2022-04-01] MEDS: Melatonin 3 MG TABLET PO PRN (20:45)
[2022-04-02] MEDS: Insulin LISPRO 300 UNITS/3 ML VIAL SUBQ SCH ×4 (07:20→19:58)
[2022-04-02] MEDS: Bumetanide 1 MG TABLET PO SCH (08:14)
[2022-04-02 09:38] LABS: Hematocrit 34.3 % (35.3-44.9); Hemoglobin 11.5 g/dL (11.5-15.4); Immature Granulocytes % 0.2 % (0-4); Lymphocytes % 28.4 %; Mean Corpuscular HGB Conc 33.5 g/dL (31.6-35.5); Mean Corpuscular Hemoglobin 31.3 pg (28.0-33.3); Mean Corpuscular Volume 93.5 fL (83.0-100.0); Mean Platelet Volume 11.5 fL (9.4-12.4); Platelet Count 227 K/mcL (140-400); Red Blood Count 3.67 M/mcL (3.82-4.97); Red Cell Distribution Width 14.5 % (11.5-14.5); Segmented Neutrophils % 60.3 %; White Blood Count 5.7 K/mcL (4.3-11.1)
[2022-04-02 09:39] LABS: Basophils % 0.5 %; Eosinophils # 0.1 K/mcL (0.0-0.6); Eosinophils % 2.3 %; Lymphocytes # 1.6 K/mcL (0.6-4.6); Monocytes # 0.5 K/mcL (0.0-1.3); Monocytes % 8.3 %; Neutrophils # 3.4 K/mcL (1.6-8.9)
[2022-04-02 09:56] LABS: Calcium 9.5 mg/dL (8.6-10.3); Potassium 3.6 mEq/L (3.5-5.1)
[2022-04-02] MEDS: Heparin 25,000UNIT/250ML 1/2NS 25,000 UNIT/250 ML IV.SOLN IVC SCH (11:51)
[2022-04-02] MEDS: *HR* HYDROcodone/Acet 5/325 mg TABLET PO PRN ×2 (12:47→19:34)
[2022-04-02] MEDS: Aspirin Enteric Coated 81 MG Tablet PO SCH (12:47)
[2022-04-02] MEDS: lisinopriL 10 MG TABLET PO SCH (13:08)
[2022-04-02] MEDS: hydrALAZINE 25 MG TABLET PO SCH ×2 (14:23→19:59)
[2022-04-02] MEDS: *HR* Heparin 5,000 UNIT/ML VIAL SQ SCH (16:41)
[2022-04-02] MEDS: Ondansetron ODT 4 MG TAB.RAPDIS SL PRN (19:34)
[2022-04-02] MEDS: Melatonin 3 MG TABLET PO PRN (21:16)
[2022-04-03] MEDS: *HR* HYDROcodone/Acet 5/325 mg TABLET PO PRN ×3 (03:39→20:54)
[2022-04-03] MEDS ORDERED: ALPRAZolam 0.25 MG TABLET PO ONE ×2 (04:09→15:42)
[2022-04-03 05:49] LABS: Basophils # 0.1 K/mcL (0.0-0.2); Basophils % 0.9 %; Eosinophils # 0.1 K/mcL (0.0-0.6); Eosinophils % 2.6 %; Hematocrit 33.1 % (35.3-44.9); Hemoglobin 11.1 g/dL (11.5-15.4); Immature Granulocytes % 0.2 % (0-4); Lymphocytes # 2.1 K/mcL (0.6-4.6); Lymphocytes % 38.1 %; Mean Corpuscular HGB Conc 33.5 g/dL (31.6-35.5); Mean Corpuscular Hemoglobin 31.4 pg (28.0-33.3); Mean Corpuscular Volume 93.5 fL (83.0-100.0); Mean Platelet Volume 11.9 fL (9.4-12.4); Monocytes # 0.6 K/mcL (0.0-1.3); Neutrophils # 2.6 K/mcL (1.6-8.9); Platelet Count 223 K/mcL (140-400); Red Blood Count 3.54 M/mcL (3.82-4.97); Red Cell Distribution Width 14.5 % (11.5-14.5); Segmented Neutrophils % 47.2 %; White Blood Count 5.4 K/mcL (4.3-11.1)
[2022-04-03] MEDS: *HR* Heparin 5,000 UNIT/ML VIAL SQ SCH ×2 (06:05→16:41)
[2022-04-03 06:07] LABS: Calcium 9.6 mg/dL (8.6-10.3); Potassium 3.3 mEq/L (3.5-5.1)
[2022-04-03] MEDS: Metoprolol XL (24 HR) Succ 50 MG TAB.ER.24H PO SCH (09:18)
[2022-04-03] MEDS: hydrALAZINE 25 MG TABLET PO SCH ×3 (09:18→20:55)
[2022-04-03] MEDS: lisinopriL 10 MG TABLET PO SCH (09:18)
[2022-04-03] MEDS: Aspirin Enteric Coated 81 MG Tablet PO SCH (09:19)
[2022-04-03] MEDS: Bumetanide 1 MG TABLET PO SCH (09:19)
[2022-04-03] MEDS: Insulin LISPRO 300 UNITS/3 ML VIAL SUBQ SCH ×4 (09:20→20:55)
[2022-04-03] MEDS: Melatonin 3 MG TABLET PO PRN (20:56)
[2022-04-04] MEDS: *HR* HYDROcodone/Acet 5/325 mg TABLET PO PRN ×2 (04:45→11:40)
[2022-04-04] MEDS ORDERED: *HR* LORazepam 2 MG/ML VIAL IVP ONE (04:53)
[2022-04-04] MEDS: *HR* Heparin 5,000 UNIT/ML VIAL SQ SCH (05:30)
[2022-04-04 06:13] LABS: Calcium 9.8 mg/dL (8.6-10.3); Potassium 3.8 mEq/L (3.5-5.1)
[2022-04-04 06:14] LABS: Magnesium 1.4 mg/dL (1.6-2.6); Phosphorous 3.4 mg/dL (2.7-4.5)
[2022-04-04] MEDS: Insulin LISPRO 300 UNITS/3 ML VIAL SUBQ SCH ×2 (07:50→11:36)
[2022-04-04] MEDS: Bumetanide 1 MG TABLET PO SCH (08:01)
[2022-04-04] MEDS: lisinopriL 10 MG TABLET PO SCH (08:01)
[2022-04-04] MEDS: Metoprolol XL (24 HR) Succ 50 MG TAB.ER.24H PO SCH (08:01)
[2022-04-04] MEDS: hydrALAZINE 25 MG TABLET PO SCH ×2 (08:01→13:58)
[2022-04-04] MEDS: Aspirin Enteric Coated 81 MG Tablet PO SCH (08:01)
[2022-04-04 11:13] VITALS: BP 108/71; PULSE 60; TEMP 97.4; O2SAT 96
[2022-04-04 15:22] LABS: Influenza A PCR Negative (Negative); Influenza B PCR Negative (Negative); Resp. Syncytial Virus PCR Negative (Negative)
[2022-04-04 15:52] LABS: SARS-CoV-2 by PCR (In House) Negative (Negative)
== END 2022-04-04 18:40 ==
LOC: 3BNU → SUATTDRO 03:00
PROVIDERS: ADMIT Internal Medicine; ATTEND Internal Medicine

== ENCOUNTER 2022-04-14 21:16 | Inpatient (IN) ==
[2022-04-15] MEDS ORDERED: 0.9 % Sodium Chloride 1,000 ML IV ONE ×3 (01:23→05:35)
[2022-04-15] MEDS ORDERED: Ondansetron 4 MG/2 ML VIAL IVP STA (01:30)
[2022-04-15 01:42] LABS: Basophils # 0.1 K/mcL (0.0-0.2); Basophils % 0.9 %; Eosinophils # 0.1 K/mcL (0.0-0.6); Eosinophils % 0.9 %; Hematocrit 34.8 % (35.3-44.9); Hemoglobin 11.9 g/dL (11.5-15.4); Immature Granulocytes % 0.1 % (0-4); Lymphocytes # 1.4 K/mcL (0.6-4.6); Lymphocytes % 17.9 %; Mean Corpuscular HGB Conc 34.2 g/dL (31.6-35.5); Mean Corpuscular Hemoglobin 31.8 pg (28.0-33.3); Mean Platelet Volume 11.7 fL (9.4-12.4); Monocytes # 0.7 K/mcL (0.0-1.3); Monocytes % 8.4 %; Neutrophils # 5.7 K/mcL (1.6-8.9); Platelet Count 238 K/mcL (140-400); Red Blood Count 3.74 M/mcL (3.82-4.97); Red Cell Distribution Width 13.8 % (11.5-14.5); Segmented Neutrophils % 71.8 %; White Blood Count 7.9 K/mcL (4.3-11.1)
[2022-04-15 01:53] LABS: INR 1.1; Prothrombin Time 12.1 Seconds (9.4-12.1)
[2022-04-15 01:55] LABS: Activated Partial Thrombo Time 29.1 Seconds (26.0-36.0)
[2022-04-15 02:05] LABS: Albumin 3.7 g/dL (3.5-5.7); Albumin/Globulin Ratio 1.5 (1.1-2.2); Bilirubin,Direct 0.2 mg/dL (0.0-0.2); Bilirubin,Indirect 0.4 mg/dL (0.0-1.0); Bilirubin,Total 0.6 mg/dL (0.3-1.0); Calcium 9.5 mg/dL (8.6-10.3); Globulin 2.5 g/dL (2.4-3.5); Magnesium 1.6 mg/dL (1.6-2.6); Potassium 3.8 mEq/L (3.5-5.1); Total Protein 6.2 g/dL (6.4-8.9); Troponin I 0.13 ng/mL (< 0.04)
[2022-04-15 02:26] LABS: Thyroid Stimulating Hormone 0.654 mcIU/mL (0.340-5.600)
[2022-04-15] MEDS ORDERED: Aspirin 325 MG TABLET PO ONE (05:16)
[2022-04-15] MEDS ORDERED: *HR* Promethazine 25 MG/ML VIAL IM PRN (05:50)
[2022-04-15] MEDS ORDERED: Naloxone 0.4 MG/ML INJ IVP PRN (05:50)
[2022-04-15] MEDS ORDERED: *HR* Dextrose 50 % in Water (Syg) 50 ML SYRINGE IVP PRN (06:17)
[2022-04-15] MEDS ORDERED: D5% in Water 1,000 ML IVC PRN (06:17)
[2022-04-15] MEDS ORDERED: Dextrose Gel 15 GM/37.5 ML TUBE PO PRN ×2 (06:17)
[2022-04-15 06:49] LABS: Basophils % 0.6 %; Eosinophils # 0.1 K/mcL (0.0-0.6); Eosinophils % 1.4 %; Hematocrit 34.6 % (35.3-44.9); Hemoglobin 11.5 g/dL (11.5-15.4); Immature Granulocytes % 0.2 % (0-4); Lymphocytes # 1.9 K/mcL (0.6-4.6); Lymphocytes % 30.3 %; Mean Corpuscular HGB Conc 33.2 g/dL (31.6-35.5); Mean Corpuscular Hemoglobin 31.5 pg (28.0-33.3); Mean Corpuscular Volume 94.8 fL (83.0-100.0); Mean Platelet Volume 11.5 fL (9.4-12.4); Monocytes # 0.6 K/mcL (0.0-1.3); Monocytes % 8.6 %; Neutrophils # 3.8 K/mcL (1.6-8.9); Platelet Count 233 K/mcL (140-400); Red Blood Count 3.65 M/mcL (3.82-4.97); Red Cell Distribution Width 13.8 % (11.5-14.5); Segmented Neutrophils % 58.9 %; White Blood Count 6.4 K/mcL (4.3-11.1)
[2022-04-15 06:55] LABS: VBG HCO3 26 mEq/L (21-27); VBG PCO2 52 mmHg (41-51); VBG PH 7.31 pH Units (7.32-7.42); VBG PO2 53 mmHg (25-50)
[2022-04-15 06:57] LABS: INR 1.1; Prothrombin Time 11.7 Seconds (9.4-12.1)
[2022-04-15 07:00] LABS: Activated Partial Thrombo Time 28.3 Seconds (26.0-36.0)
[2022-04-15] MEDS ORDERED: 0.9 % Sodium Chloride 1,000 ML IVC SCH (07:00)
[2022-04-15] MEDS ORDERED: Doxycycline 100 MG in 0.9 % Sodium Chloride Mini Bag 100 ML IVPB SCH ×2 (07:00→10:00)
[2022-04-15 07:11] LABS: Albumin 3.5 g/dL (3.5-5.7); Albumin/Globulin Ratio 1.5 (1.1-2.2); Bilirubin,Total 0.6 mg/dL (0.3-1.0); Calcium 9.1 mg/dL (8.6-10.3); Chol/HDL Ratio 2.4 (0-4.9); Globulin 2.3 g/dL (2.4-3.5); Magnesium 1.7 mg/dL (1.6-2.6); Phosphorous 5.1 mg/dL (2.7-4.5); Potassium 3.7 mEq/L (3.5-5.1); Total Protein 5.8 g/dL (6.4-8.9)
[2022-04-15 07:21] LABS: Adenovirus Not Detected (Not Detect); Bordetella Pertussis Not Detected (Not Detect); Chlamydophila pneumoniae Not Detected (Not Detect); Coronavirus 229E Not Detected (Not Detect); Coronavirus HKU1 Not Detected (Not Detect); Coronavirus NL63 Not Detected (Not Detect); Coronavirus OC43 Not Detected (Not Detect); Human Metapneumovirus Not Detected (Not Detect); Human Rhinovirus/Enterovirus Not Detected (Not Detect); Influenza A Subtype 2009 H1 Not Detected (Not Detect); Influenza B Not Detected (Not Detect); Mycoplasma pneumoniae Not Detected (Not Detect); Parainfluenza Virus 1 Not Detected (Not Detect); Parainfluenza Virus 2 Not Detected (Not Detect); Parainfluenza Virus 3 Not Detected (Not Detect); Parainfluenza Virus 4 Not Detected (Not Detect); Respiratory Syncytial Virus Not Detected (Not Detect); SARS-CoV-2 Not Detected (Not Detect)
[2022-04-15 07:27] LABS: Acetaminophen < 10 mcg/mL (10-20); Creatine Kinase 65 Units/L (30-223); Salicylate < 2.5 mg/dL (15.0-30.0); Troponin I 0.14 ng/mL (< 0.04)
[2022-04-15] MEDS: cefTRIAXone 1,000 MG in 0.9 % Sodium Chloride 10 ML IVP SCH (09:15)
[2022-04-15] MEDS: Aspirin Enteric Coated 81 MG Tablet PO SCH (09:55)
[2022-04-15] MEDS: Metoprolol XL (24 HR) Succ 50 MG TAB.ER.24H PO SCH (09:55)
[2022-04-15] MEDS: Lactobacillus 1 EACH CAP.SPRINK PO SCH ×2 (09:55→20:20)
[2022-04-15] MEDS: Budesonide/Formoterol 160/4.5 1 PUFF INH IH SCH ×2 (09:58→21:53)
[2022-04-15 14:57] LABS: Folate 14.7 ng/mL (3.0-16.0)
[2022-04-15] MEDS: Ipratropium/Albuterol Neb 3 ML IH SCH ×3 (15:26→21:53)
[2022-04-15] MEDS: Ringers Solution, Lactated 1,000 ML IVC SCH ×2 (15:44→22:28)
[2022-04-15] MEDS: *HR* Heparin 5,000 UNIT/ML VIAL SQ SCH (18:11)
[2022-04-15] MEDS: Doxycycline 100 MG CAPSULE PO SCH (20:20)
[2022-04-15] MEDS: Acetaminophen 325 MG TABLET PO PRN (20:39)
[2022-04-15] MEDS: Melatonin 3 MG TABLET PO PRN (22:28)
[2022-04-16] MEDS: Ipratropium/Albuterol Neb 3 ML IH SCH ×4 (03:47→21:52)
[2022-04-16] MEDS ORDERED: *HR* HYDROcodone/Acet 5/325 mg TABLET PO ONE (06:01)
[2022-04-16] MEDS: *HR* Heparin 5,000 UNIT/ML VIAL SQ SCH ×2 (06:03→17:19)
[2022-04-16] MEDS: Acetaminophen 325 MG TABLET PO PRN ×2 (06:09→09:54)
[2022-04-16 06:15] LABS: Calcium 8.4 mg/dL (8.6-10.3); Magnesium 1.4 mg/dL (1.6-2.6); Phosphorous 3.4 mg/dL (2.7-4.5); Potassium 3.7 mEq/L (3.5-5.1)
[2022-04-16] MEDS: Lactobacillus 1 EACH CAP.SPRINK PO SCH ×2 (08:05→20:50)
[2022-04-16] MEDS: Aspirin Enteric Coated 81 MG Tablet PO SCH (08:06)
[2022-04-16] MEDS: Doxycycline 100 MG CAPSULE PO SCH ×2 (08:07→20:50)
[2022-04-16] MEDS: cefTRIAXone 1,000 MG in 0.9 % Sodium Chloride 10 ML IVP SCH (08:07)
[2022-04-16] MEDS: Metoprolol XL (24 HR) Succ 50 MG TAB.ER.24H PO SCH (08:07)
[2022-04-16] MEDS: Budesonide/Formoterol 160/4.5 1 PUFF INH IH SCH ×2 (09:17→21:52)
[2022-04-16] MEDS ORDERED: Budesonide/Formoterol 160/4.5 1 PUFF INH IH PRN (10:36)
[2022-04-16] MEDS ORDERED: Ringers Solution, Lactated 1,000 ML IVC SCH (10:45)
[2022-04-16 15:27] LABS: Bacteria,Urine Few per hpf (None-Few); Bilirubin,Urine Negative (Negative); Blood,Urine Negative (Negative); Clarity,Urine Clear (Clear); Color,Urine Light-Yellow (Yellow); Glucose,Urine (UA) >=1000 mg/dL (Normal); Ketones,Urine Negative (Negative); Leukocyte Esterase,Urine Small (Negative); Mucus,Urine Few per lpf (None-Few); Nitrite,Urine Negative (Negative); Protein,Urine Trace mg/dL (Neg-Trace); RBC,Urine 0-3 per hpf (0-3); Squamous Epithelial Cell,Urine Few per hpf (None-Few); Urobilinogen,Urine Normal (Normal)
[2022-04-16] MEDS: Melatonin 3 MG TABLET PO PRN (20:50)
[2022-04-16] MEDS: Pregabalin 50 MG CAPSULE PO SCH (20:50)
[2022-04-17 03:20] LABS: Calcium 9.1 mg/dL (8.6-10.3); Potassium 3.7 mEq/L (3.5-5.1)
[2022-04-17] MEDS: Ipratropium/Albuterol Neb 3 ML IH SCH ×3 (04:00→15:34)
[2022-04-17] MEDS: *HR* Heparin 5,000 UNIT/ML VIAL SQ SCH (06:42)
[2022-04-17] MEDS ORDERED: Metoprolol XL (24 HR) Succ 25 MG TAB.ER.24H PO SCH (09:00)
[2022-04-17] MEDS ORDERED: Aspirin Enteric Coated 81 MG Tablet PO SCH (09:00)
[2022-04-17 09:58] LABS: Amphetamine Screen,Urine Negative ng/mL (Cutoff=1000); Barbiturate Screen,Urine Negative ng/mL (Cutoff=200); Benzodiazepines Screen,Urine Negative ng/mL (Cutoff=200); Cannabinoid Screen,Urine Negative ng/mL (Cutoff = 50); Cocaine Screen,Urine Negative ng/mL (Cutoff= 300); Opiate Screen,Urine Positive ng/mL (Cutoff=300); Phencyclidine Screen,Urine Negative ng/mL (Cutoff=25)
[2022-04-17] MEDS: Lactobacillus 1 EACH CAP.SPRINK PO SCH (10:22)
[2022-04-17] MEDS: Doxycycline 100 MG CAPSULE PO SCH (10:22)
[2022-04-17] MEDS: cefTRIAXone 1,000 MG in 0.9 % Sodium Chloride 10 ML IVP SCH (10:22)
[2022-04-17] MEDS: Pregabalin 50 MG CAPSULE PO SCH (10:22)
[2022-04-17] MEDS: Budesonide/Formoterol 160/4.5 1 PUFF INH IH SCH (10:58)
[2022-04-17] MEDS: Aspirin Enteric Coated 81 MG Tablet PO SCH (11:08)
[2022-04-17] MEDS: Acetaminophen 325 MG TABLET PO PRN (15:05)
[2022-04-17 15:59] VITALS: BP 153/74; PULSE 65; TEMP 97.9; O2SAT 96
[2022-04-17 18:54] LABS: Influenza A PCR Negative (Negative); Influenza B PCR Negative (Negative); Resp. Syncytial Virus PCR Negative (Negative)
[2022-04-17 19:06] LABS: SARS-CoV-2 by PCR (In House) Negative (Negative)
== END 2022-04-17 19:30 | DRG 682 ==
LOC: 2ANU 21:16 → EMEROOARM 21:16 → OBSVTOIN 04-15 10:12 → SUATTDRO 04-15 12:39 → 2ANU 04-15 13:29
PROVIDERS: ADMIT Internal Medicine; ATTEND Internal Medicine

== ENCOUNTER 2022-05-01 15:44 | Observation (INO) ==
[2022-05-01] MEDS ORDERED: Ondansetron ODT 4 MG TAB.RAPDIS SL PRN (19:30)
[2022-05-01] MEDS ORDERED: Naloxone 0.4 MG/ML INJ IVP PRN (19:30)
[2022-05-01] MEDS ORDERED: MOM Conc 10 ML UD.LIQ PO PRN (19:30)
[2022-05-01] MEDS ORDERED: 0.9 % Sodium Chloride 1,000 ML IVC SCH (21:45)
[2022-05-01] MEDS ORDERED: D5% in Water 1,000 ML IVC PRN (21:47)
[2022-05-01] MEDS ORDERED: Dextrose Gel 15 GM/37.5 ML TUBE PO PRN ×2 (21:47)
[2022-05-01] MEDS ORDERED: *HR* Dextrose 50 % in Water (Syg) 50 ML SYRINGE IVP PRN (21:47)
[2022-05-01] MEDS: hydrOXYzine pamoate 25 MG CAPSULE PO SCH (22:21)
[2022-05-02] MEDS ORDERED: Baclofen 10 MG TABLET PO SCH (01:15)
[2022-05-02] MEDS: Melatonin 3 MG TABLET PO PRN ×2 (01:16→20:17)
[2022-05-02] MEDS: *HR* HYDROcodone/Acet 5/325 mg TABLET PO PRN ×3 (01:26→22:24)
[2022-05-02 03:30] LABS: Hematocrit 30.3 % (35.3-44.9); Hemoglobin 9.9 g/dL (11.5-15.4); Mean Corpuscular HGB Conc 32.7 g/dL (31.6-35.5); Mean Corpuscular Hemoglobin 31.8 pg (28.0-33.3); Mean Corpuscular Volume 97.4 fL (83.0-100.0); Mean Platelet Volume 12.1 fL (9.4-12.4); Platelet Count 232 K/mcL (140-400); Red Blood Count 3.11 M/mcL (3.82-4.97)
[2022-05-02 03:49] LABS: Calcium 9.5 mg/dL (8.6-10.3); Potassium 3.7 mEq/L (3.5-5.1)
[2022-05-02 04:07] LABS: Sodium, Urine 54.3 mEq/L
[2022-05-02] MEDS: Acetaminophen 325 MG TABLET PO PRN ×2 (04:16→20:16)
[2022-05-02] MEDS: *HR* Heparin 5,000 UNIT/ML VIAL SQ SCH ×3 (05:35→22:16)
[2022-05-02] MEDS: Insulin LISPRO 300 UNITS/3 ML VIAL SUBQ SCH ×4 (07:17→20:20)
[2022-05-02] MEDS ORDERED: *HR* LORazepam 2 MG/ML VIAL IVP ONE ×2 (08:24→12:55)
[2022-05-02] MEDS ORDERED: Budesonide/Formoterol 160/4.5 1 PUFF INH IH PRN (12:49)
[2022-05-02] MEDS: hydrALAZINE 25 MG TABLET PO SCH ×2 (14:51→20:16)
[2022-05-02] MEDS: Aspirin Enteric Coated 81 MG Tablet PO SCH (15:06)
[2022-05-02] MEDS: Sennosides/Docusate Sodium TABLET PO SCH (20:16)
[2022-05-02] MEDS: hydrOXYzine pamoate 25 MG CAPSULE PO SCH (20:16)
[2022-05-03] MEDS: Acetaminophen 325 MG TABLET PO PRN (03:13)
[2022-05-03 03:55] LABS: Hematocrit 28.7 % (35.3-44.9); Hemoglobin 9.1 g/dL (11.5-15.4); Mean Corpuscular HGB Conc 31.7 g/dL (31.6-35.5); Mean Corpuscular Hemoglobin 31.2 pg (28.0-33.3); Mean Corpuscular Volume 98.3 fL (83.0-100.0); Mean Platelet Volume 12.3 fL (9.4-12.4); Platelet Count 224 K/mcL (140-400); Red Blood Count 2.92 M/mcL (3.82-4.97); Red Cell Distribution Width 14.3 % (11.5-14.5); White Blood Count 7.4 K/mcL (4.3-11.1)
[2022-05-03 04:11] LABS: Calcium 8.9 mg/dL (8.6-10.3); Potassium 3.8 mEq/L (3.5-5.1)
[2022-05-03] MEDS: *HR* Heparin 5,000 UNIT/ML VIAL SQ SCH ×3 (05:26→21:06)
[2022-05-03] MEDS: *HR* HYDROcodone/Acet 5/325 mg TABLET PO PRN ×3 (05:26→21:05)
[2022-05-03] MEDS: Insulin LISPRO 300 UNITS/3 ML VIAL SUBQ SCH ×4 (09:09→20:47)
[2022-05-03] MEDS: 0.9 % Sodium Chloride 1,000 ML IVC SCH (09:09)
[2022-05-03] MEDS: Sennosides/Docusate Sodium TABLET PO SCH ×2 (09:10→21:05)
[2022-05-03] MEDS: Aspirin Enteric Coated 81 MG Tablet PO SCH (09:11)
[2022-05-03] MEDS: hydrALAZINE 25 MG TABLET PO SCH ×3 (09:11→21:05)
[2022-05-03] MEDS: hydrOXYzine pamoate 25 MG CAPSULE PO SCH (21:05)
[2022-05-03] MEDS: Melatonin 3 MG TABLET PO PRN (21:05)
[2022-05-03] MEDS ORDERED: *HR* LORazepam 2 MG/ML VIAL IVP ONE (21:38)
[2022-05-04] MEDS: *HR* HYDROcodone/Acet 5/325 mg TABLET PO PRN ×4 (04:21→23:29)
[2022-05-04] MEDS: *HR* Heparin 5,000 UNIT/ML VIAL SQ SCH ×3 (05:07→21:09)
[2022-05-04 07:24] LABS: Hematocrit 28.1 % (35.3-44.9); Mean Corpuscular Hemoglobin 31.6 pg (28.0-33.3); Mean Corpuscular Volume 98.6 fL (83.0-100.0); Mean Platelet Volume 11.7 fL (9.4-12.4); Platelet Count 208 K/mcL (140-400); Red Blood Count 2.85 M/mcL (3.82-4.97); Red Cell Distribution Width 14.4 % (11.5-14.5); White Blood Count 7.1 K/mcL (4.3-11.1)
[2022-05-04] MEDS: Insulin LISPRO 300 UNITS/3 ML VIAL SUBQ SCH ×4 (07:42→21:11)
[2022-05-04] MEDS: 0.9 % Sodium Chloride 1,000 ML IVC SCH (07:43)
[2022-05-04 07:46] LABS: Calcium 9.6 mg/dL (8.6-10.3); Potassium 3.6 mEq/L (3.5-5.1)
[2022-05-04] MEDS: Aspirin Enteric Coated 81 MG Tablet PO SCH (09:46)
[2022-05-04] MEDS: hydrALAZINE 25 MG TABLET PO SCH ×3 (09:47→21:09)
[2022-05-04] MEDS: Sennosides/Docusate Sodium TABLET PO SCH ×2 (09:47→21:09)
[2022-05-04] MEDS: Melatonin 3 MG TABLET PO PRN (21:09)
[2022-05-04] MEDS: hydrOXYzine pamoate 25 MG CAPSULE PO SCH (21:09)
[2022-05-04] MEDS: Acetaminophen 325 MG TABLET PO PRN (21:09)
[2022-05-05] MEDS ORDERED: *HR* LORazepam 2 MG/ML VIAL IVP ONE (01:23)
[2022-05-05] MEDS: *HR* HYDROcodone/Acet 5/325 mg TABLET PO PRN ×3 (05:35→20:04)
[2022-05-05] MEDS: *HR* Heparin 5,000 UNIT/ML VIAL SQ SCH ×3 (05:35→21:36)
[2022-05-05] MEDS: Aspirin Enteric Coated 81 MG Tablet PO SCH (08:48)
[2022-05-05] MEDS: Insulin LISPRO 300 UNITS/3 ML VIAL SUBQ SCH ×4 (08:48→21:35)
[2022-05-05] MEDS: hydrALAZINE 25 MG TABLET PO SCH ×3 (08:49→20:05)
[2022-05-05] MEDS: Bumetanide 1 MG TABLET PO SCH (08:49)
[2022-05-05] MEDS: Sennosides/Docusate Sodium TABLET PO SCH ×2 (08:54→20:05)
[2022-05-05] MEDS: hydrOXYzine pamoate 25 MG CAPSULE PO SCH (20:04)
[2022-05-06] MEDS: *HR* HYDROcodone/Acet 5/325 mg TABLET PO PRN ×3 (04:17→17:57)
[2022-05-06] MEDS: *HR* Heparin 5,000 UNIT/ML VIAL SQ SCH ×3 (06:06→21:45)
[2022-05-06] MEDS ORDERED: traZODone 50 MG TABLET PO PRN (07:58)
[2022-05-06] MEDS: Insulin LISPRO 300 UNITS/3 ML VIAL SUBQ SCH ×4 (08:54→21:46)
[2022-05-06] MEDS: Bumetanide 1 MG TABLET PO SCH (08:54)
[2022-05-06] MEDS: hydrALAZINE 25 MG TABLET PO SCH ×3 (08:54→21:45)
[2022-05-06] MEDS: Aspirin Enteric Coated 81 MG Tablet PO SCH (08:55)
[2022-05-06] MEDS: Sennosides/Docusate Sodium TABLET PO SCH ×2 (09:01→21:46)
[2022-05-06] MEDS: hydrOXYzine pamoate 25 MG CAPSULE PO SCH (21:45)
[2022-05-06] MEDS: traZODone 50 MG TABLET PO SCH (21:45)
[2022-05-07] MEDS: *HR* HYDROcodone/Acet 5/325 mg TABLET PO PRN ×3 (03:20→20:54)
[2022-05-07] MEDS: *HR* Heparin 5,000 UNIT/ML VIAL SQ SCH ×3 (05:35→20:56)
[2022-05-07] MEDS: Insulin LISPRO 300 UNITS/3 ML VIAL SUBQ SCH ×4 (08:43→20:48)
[2022-05-07] MEDS: Bumetanide 1 MG TABLET PO SCH (08:51)
[2022-05-07] MEDS: Aspirin Enteric Coated 81 MG Tablet PO SCH (08:53)
[2022-05-07] MEDS: Sennosides/Docusate Sodium TABLET PO SCH ×2 (08:53→20:55)
[2022-05-07] MEDS: hydrALAZINE 25 MG TABLET PO SCH ×3 (08:55→20:55)
[2022-05-07] MEDS: hydrOXYzine pamoate 25 MG CAPSULE PO PRN (13:59)
[2022-05-07] MEDS: Acetaminophen 325 MG TABLET PO PRN (18:01)
[2022-05-07] MEDS: traZODone 50 MG TABLET PO SCH (20:55)
[2022-05-07] MEDS: hydrOXYzine pamoate 25 MG CAPSULE PO SCH (20:56)
[2022-05-08] MEDS: hydrOXYzine pamoate 25 MG CAPSULE PO PRN ×2 (03:51→10:52)
[2022-05-08] MEDS: *HR* HYDROcodone/Acet 5/325 mg TABLET PO PRN (05:04)
[2022-05-08] MEDS: *HR* Heparin 5,000 UNIT/ML VIAL SQ SCH ×2 (05:05→14:22)
[2022-05-08] MEDS: Insulin LISPRO 300 UNITS/3 ML VIAL SUBQ SCH ×2 (07:19→11:32)
[2022-05-08] MEDS: Aspirin Enteric Coated 81 MG Tablet PO SCH (07:39)
[2022-05-08] MEDS: Bumetanide 1 MG TABLET PO SCH (07:39)
[2022-05-08] MEDS: hydrALAZINE 25 MG TABLET PO SCH ×2 (07:39→14:22)
[2022-05-08] MEDS: Sennosides/Docusate Sodium TABLET PO SCH (07:40)
[2022-05-08 10:40] VITALS: O2SAT 99
[2022-05-08 15:26] VITALS: BP 146/76; PULSE 64; TEMP 97.4
== END 2022-05-08 16:00 | disposition home health service (06) ==
LOC: 3BNU → SUATTDRO 18:35
PROVIDERS: ADMIT Internal Medicine; ATTEND Nurse Practitioner